=== PATIENT | female | born 1960 | race Caucasian/White ===

== ENCOUNTER 2021-02-26 20:24 | Emergency (ER) | payer OTHER ==
[2021-02-26 20:39] VITALS: RESP 18; TEMP 98.6
[2021-02-26] MEDS ORDERED: ONDANSETRON 4 MG/2 ML VIAL IVP STA (21:12)
[2021-02-26] MEDS ORDERED: SODIUM CHLORIDE 0.9% 1,000 ML IV STA (21:12)
[2021-02-26] MEDS ORDERED: HYDROmorphone 1 MG/ML 1 ML SYRINGE IVP STA ×2 (21:13→22:51)
--- NOTE | 2021-02-26 22:05 | CT ---
EXAMINATION TYPE: CT brain wo con DATE OF EXAM: 02/26/2021 COMPARISON: None HISTORY: headaches x3 days CT DLP: 1084.4 mGycm Automated exposure control for dose reduction was used. Ventricles and sulci appear normal. There is no mass effect nor midline shift. There is no sign of in tracranial hemorrhage. There is no evidence of cerebral edema. Calvarium is intact. IMPRESSION: Negative unenhanced head CT scan.
--- NOTE | 2021-02-26 22:22 | ED ---
Headache HPI - General Chief Complaint: Headache Stated Complaint: headache Time Seen by Provider: 02/26/21 21:03 Source: patient, RN notes reviewed Mode of arrival: ambulatory Limitations: no limitations - History of Present Illness Initial Comments: Patient is a 61-year-old female that presents to emergency department complaining of headache. She notes she does have a history of migraine many years ago. She notes that she gets when she goes ice pick headaches every once in a while and this one seems to be similar but mildly worse. She notes that she is somewhat nauseous but has not vomited. She notes that movement tends to make the headache worse. She denied any photophobia or phonophobia. Patient was otherwise a well-appearing 61-year-old female in no apparent distress or pain. She noted her pain was approximately 6-7 out of 10 with no relief from at home medications. She denied any chest pain shortness of breath vomiting diarrhea constipation fever fatigue chills. - Related Data Previous Rx's Medication Instructions Recorded Ibuprofen [Motrin] 800 mg PO Q6HR #30 tab 02/26/21 Allergies Allergy/AdvReac Type Severity Reaction Status Date / Time acetaminophen [From Vicodin] AdvReac Rash/Hives Verified 02/26/21 20:34 hydrocodone [From Vicodin] AdvReac Rash/Hives Verified 02/26/21 20:34 Review of Systems ROS Statement: Those systems with pertinent positive or pertinent negative responses have been documented in the HPI. ROS Other: All systems not noted in ROS Statement are negative. Past Medical History Past Medical History: No Reported History History of Any Multi-Drug Resistant Organisms: None Reported Past Surgical History: No Surgical Hx Reported Past Psychological History: No Psychological Hx Reported Smoking Status: Never smoker Past Alcohol Use History: Occasional Past Drug Use History: None Reported General Exam Limitations: no limitations General appearance: alert, in no apparent distress Head exam: Present: atraumatic, normocephalic, normal inspection Eye exam: Present: normal appearance, PERRL, EOMI. Absent: scleral icterus, conjunctival injection, periorbital swelling Neck exam: Present: normal inspection Respiratory exam: Present: normal lung sounds bilaterally. Absent: respiratory distress, wheezes, rales, rhonchi, stridor Cardiovascular Exam: Present: regular rate, normal rhythm, normal heart sounds. Absent: systolic murmur, diastolic murmur, rubs, gallop, clicks GI/Abdominal exam: Present: soft, normal bowel sounds. Absent: distended, tenderness, guarding, rebound, rigid Extremities exam: Present: normal inspection, full ROM, normal capillary refill. Absent: tenderness, pedal edema, joint swelling, calf tenderness Neurological exam: Present: alert, oriented X3 Psychiatric exam: Present: normal affect, normal mood Skin exam: Present: warm, dry, intact, normal color. Absent: rash Course Vital Signs 02/26/21 20:34 Temperature 98.6 F Pulse Rate 79 Respiratory 18 Rate Blood Pressure 148/106 O2 Sat by Pulse 97 Oximetry Medical Decision Making - Medical Decision Making 61-year-old female complaining of a headache that is slightly worse or normal. Labs, 1 L normal saline, 1 mg of Dilaudid, 4 mg Zofran, CT of the brain ordered. Labs unremarkable. CT of the brain negative for any acute process. Case discussed with Dr. Carlson, patient can discharge home with follow-up to primary care and urologist as needed. - Lab Data Result diagrams: 02/26/21 21:54 02/26/21 20:25 Lab Results 02/26/21 02/26/21 Range/Units 20:25 21:54 WBC 6.2 (3.8-10.6) k/uL RBC 4.37 (3.80-5.40) m/uL Hgb 14.1 (11.4-16.0) gm/dL Hct 40.1 (34.0-46.0) % MCV 91.8 (80.0-100.0) fL MCH 32.2 (25.0-35.0) pg MCHC 35.1 (31.0-37.0) g/dL RDW 13.2 (11.5-15.5) % Plt Count 282 (150-450) k/uL MPV 6.6 Sodium 136 L (137-145) mmol/L Potassium 4.0 (3.5-5.1) mmol/L Chloride 103 (98-107) mmol/L Carbon Dioxide 21 L (22-30) mmol/L Anion Gap 12 mmol/L BUN 11 (7-17) mg/dL Creatinine 0.69 (0.52-1.04) mg/dL Est GFR (CKD-EPI)AfAm >90 (>60 ml/min/1.73 sqM) Est GFR (CKD-EPI)NonAf >90 (>60 ml/min/1.73 sqM) Glucose 100 H (74-99) mg/dL Calcium 9.9 (8.4-10.2) mg/dL Total Bilirubin 0.2 (0.2-1.3) mg/dL AST 35 (14-36) U/L ALT 36 H (4-34) U/L Alkaline Phosphatase 85 (38-126) U/L Total Protein 7.3 (6.3-8.2) g/dL Albumin 4.5 (3.5-5.0) g/dL - Radiology Data Radiology results: report reviewed, image reviewed CT the brain: Negative unenhanced head CT Disposition Clinical Impression: Migraine headache, Headache Disposition: HOME SELF-CARE Condition: Stable Instructions (If sedation given, give patient instructions): Acute Headache (ED) Additional Instructions: Please return to the Emergency Department if symptoms worsen or any other concerns. Follow-up with primary care 1-2 days. Follow-up with neurology as needed. Take Motrin as prescribed. Increase oral fluids. Is patient prescribed a controlled substance at d/c from ED?: No Referrals: None,Stated [Primary Care Provider] - 1-2 days Sanford Santillan MD [STAFF PHYSICIAN] - 1-2 days Time of Disposition: 22:53
[2021-02-26 22:24] LABS: ALT 36 U/L (4-34); AST 35 U/L (14-36); African American GFR (CKD) >90 (>60 ml/min/1.73 sqM); Albumin 4.5 g/dL (3.5-5.0); Alkaline Phosphatase 85 U/L (38-126); Anion Gap 12 mmol/L; Blood Urea Nitrogen 11 mg/dL (7-17); Calcium 9.9 mg/dL (8.4-10.2); Carbon Dioxide 21 mmol/L (22-30); Chloride 103 mmol/L (98-107); Glucose 100 mg/dL (74-99); Non-African American GFR(CKD) >90 (>60 ml/min/1.73 sqM); Sodium 136 mmol/L (137-145); Total Bilirubin 0.2 mg/dL (0.2-1.3); Total Protein 7.3 g/dL (6.3-8.2)
[2021-02-26 22:44] LABS: HCT 40.1 % (34.0-46.0); HGB 14.1 gm/dL (11.4-16.0); MCH 32.2 pg (25.0-35.0); MCHC 35.1 g/dL (31.0-37.0); MCV 91.8 fL (80.0-100.0); Mean Platelet Volume 6.6; Platelet Count 282 k/uL (150-450); RBC 4.37 m/uL (3.80-5.40); RDW 13.2 % (11.5-15.5); WBC 6.2 k/uL (3.8-10.6)
[2021-02-26 23:43] LABS: Band Neutrophils % 5 %; Eosinophils # (M) 0.06 k/uL (0-0.7); Monocytes # (M) 0.19 k/uL (0-1.0); Neutrophils % (M) 33 %; Nucleated Red Blood Cells 0 /100 WBC (0-0); Total Cells Counted 100
[2021-02-26 23:56] VITALS: BP 146/88; PULSE 72
== END 2021-02-26 23:46 | disposition home or self-care (01) ==
LOC: EC 20:24
DX: G43.909 Migraine, unspecified, not intractable, without status migrainosus (principal); Z88.5 Allergy status to narcotic agent
CPT/HCPCS: 99284; 96374; 96375; 96376; 96361; 80053; 85025; 70450; J2405; J1170